=== PATIENT | female | born 1965 | race Caucasian/White ===

== ENCOUNTER → 2019-03-09 | Outpatient (CLI) | payer BC ==
[~2019-03-09] MED LIST: IOHEXOL 240 MG/ML 50ML VIAL. ONE; IOHEXOL 240 MG/ML 50ML VIAL. PO ONE; IOHEXOL 300 MG/ML 75 ML VIAL. IV ONE
--- NOTE | 2019-03-09 16:37 | RAD ---
CT of the abdomen with and without contrast, 03/09/2019: HISTORY: Upper abdominal pain Multidetector CT imaging was performed prior to and following an IV bolus injection of iodinated contrast material. Oral contrast material was also administered for GI tract opacification. The gallbladder is surgically absent. No hepatic mass or bile duct dilatation is seen. The pancreas is unremarkable. The spleen is of normal size. No renal or adrenal abnormality is detected. There is moderate aortic calcific plaquing without evidence of aneurysm. No retroperitoneal or mesenteric adenopathy is seen. The bowel loops are not dilated. There are surgical sutures related to the right colon. No free fluid or free air is evident in the abdomen or pelvis. There are mild scattered degenerative changes in the spine. There is disc calcification at L4-5. IMPRESSION: No acute abdominal abnormality is detected. PQRS Compliance Statement: One or more of the following individualized dose reduction techniques were utilized for this examination: 1. Automated exposure control 2. Adjustment of the mA and/or kV according to patient size 3. Use of iterative reconstruction technique Electronically signed by: Babatunde Pacheco MD (03/09/2019 4:33 PM) [facility]
== END | disposition home or self-care (01) ==
LOC: CT 13:29
PROVIDERS: ATTEND Family Medicine
DX: I70.0 Atherosclerosis of aorta (principal); M51.86 Other intervertebral disc disorders, lumbar region; M47.816 Spondylosis without myelopathy or radiculopathy, lumbar region
CPT/HCPCS: 74170; Q9967

== ENCOUNTER → 2020-03-07 | Outpatient (CLI) | payer BC ==
--- NOTE | 2020-03-07 12:13 | RAD ---
CT HEAD WO CONTRAST Date: 03/07/2020 10:30 AM Clinical Indication: Reason: SUDDEN ONSET POSTERIOR COTE, STRONG FAMILY HX OF BRAIN TUMOR / Spl. Instructions: FATHER, SISTER, AND NEPHEW PASSED FROM BRAN TUMOR / History: Comparison: CT head 08/18/2011. Technique: 5 mm axial tomographic images were obtained of the head without contrast. These were viewed on brain and bone windows. One or more of the following dose reduction techniques were utilized: Automated exposure control (AEC), Adjustment of mA and/or kV according to patient size, Use of iterative reconstruction technique such as ASiR, CT scan done according to ALARA and image gently/image wisely Findings: The brain parenchyma is normal in attenuation. No intra- or extra-axial mass or fluid collection. No acute hemorrhage. The ventricles are normal in size, shape, and morphology. The stark-white matter junction is normal. The subarachnoid cisterns are patent. The visualized paranasal sinuses are normal. The visualized portions of the orbits and globes are normal. The mastoid air cells are clear. The swimming pool attendant topogram shows no lytic lesion or fracture. Impression: No acute intracranial process. Electronically signed by: Robert Canseco MD (03/07/2020 12:10 PM) [id number]
== END ==
LOC: CT 10:07
PROVIDERS: ATTEND Family Medicine
DX: R51 Headache (principal); R11.0 Nausea
CPT/HCPCS: 70450

== ENCOUNTER 2020-03-19 10:21 | Emergency (ER) | payer BC ==
[~2020-03-19] VITALS: Ht 167.6 cm; Wt 54.0 kg
[2020-03-19] MEDS ORDERED: IV NORMAL SALINE 1,000ML 1,000 ML IV ONE (10:45)
[2020-03-19] MEDS ORDERED: IOHEXOL 300 MG/ML 75 ML VIAL. IV ONE (10:45)
[2020-03-19] MEDS ORDERED: ONDANSETRON PF 4 MG/2 ML VIAL. IVP ONE (10:45)
[2020-03-19] MEDS ORDERED: FAMOTIDINE 20 MG/2 ML VIAL IVP ONE (10:45)
[2020-03-19 10:55] VITALS: BP 116/66
[2020-03-19 10:55] LABS: BASO # 0.1 x10^3/uL (0.0-0.2); BASO % 1 % (0-3); EOS # 0.2 x10^3/uL (0.0-0.7); EOS % 3 % (0-3); HEMATOCRIT 41.2 % (36.0-47.0); HEMOGLOBIN 13.8 g/dL (12.0-15.5); LYMPH # 2.4 x10^3/uL (1.0-4.8); LYMPH % 36 % (24-48); MEAN CORPUSCULAR HEMOGLOBIN 32 pg (25-35); MEAN CORPUSCULAR HGB CONC 33 g/dL (31-37); MEAN CORPUSCULAR VOLUME 95 fL (79-100); MONO # 0.5 x10^3/uL (0.0-1.1); MONO % 7 % (0-9); NEUT # 3.5 x10^3uL (1.8-7.7); NEUT % 53 % (31-73); PLATELET COUNT 223 x10^3/uL (140-400); RED BLOOD COUNT 4.36 x10^6/uL (3.50-5.40); RED CELL DISTRIBUTION WIDTH 13.2 % (11.5-14.5); WHITE BLOOD COUNT 6.6 x10^3/uL (4.0-11.0)
[2020-03-19 11:01] LABS: CALCIUM 9.1 mg/dL (8.5-10.1); GFR 57.6
--- NOTE | 2020-03-19 11:04 | RAD ---
CT abdomen and pelvis with contrast HISTORY: Left lower quadrant pain Technique: After the administration of intravenous contrast, CT imaging was performed of the abdomen and pelvis. No oral contrast was given. Multiplanar images are reviewed. Exposure: One or more of the following individualized dose reduction techniques were utilized for this examination: 1. Automated exposure control 2. Adjustment of the mA and/or kV according to patient size 3. Use of iterative reconstruction technique. Comparison: March 09, 2019 Findings: There is some motion degradation. There is no significant abnormality of the visualized lung bases. There is no significant abnormality of the liver, spleen, pancreas, adrenal glands. Both kidneys enhance without hydronephrosis. There has been cholecystectomy. Accurate evaluation of bowel is limited without oral contrast. The bowel is not significantly dilated. There is no free fluid or free air. While not associated with significant adjacent inflammatory-type change, there is appearance of degree of mild long segment wall thickening of the descending and sigmoid colon and also possibly of the distal transverse colon. No abscess is identified. Degree of small bowel wall thickening in the left abdomen is also possible. Urinary bladder is distended. There is some scattered plaque of the abdominal aorta and right iliac artery. Small calcification in the left pelvis is believed to be a phlebolith rather than distal ureteral calculus. Impression: 1. Accurate evaluation for bowel wall thickening is limited without oral contrast, probable degree of mild long segmental wall thickening of the colon as described which may be seen with colitis and possible degree of small bowel wall thickening of the abdomen as may be seen with enteritis in the appropriate clinical setting. 2. Urinary bladder is distended. Electronically signed by: Robert Garcia MD (03/19/2020 11:01 AM) [id number]
[2020-03-19 11:07] LABS: ALBUMIN 3.5 g/dL (3.4-5.0); MAGNESIUM 1.9 mg/dL (1.8-2.4); TOTAL BILIRUBIN 0.3 mg/dL (0.2-1.0); TOTAL PROTEIN 6.9 g/dL (6.4-8.2)
--- NOTE | 2020-03-19 11:07 | PHYS DOC ---
Past History Past Medical History: Diverticulitis Additional Past Medical Histor: Chronic abdominal pain Past Surgical History: Colectomy, Other Additional Past Surgical Histo: Abdominal abscess Smoking: Cigarettes Alcohol Use: Rarely Drug Use: None General Adult EDM: Chief Complaint: ABDOMINAL PAIN HPI: HPI: 54-year-old female presents with left lower quadrant abdominal pain which is progressively gotten worse over the last several months. Patient reports several year history of chronic abdominal pain. Patient reports prior diverticulitis. Patient also reports history of intra-abdominal abscess. Patient reports presents today secondary to worsening of pain and report of painful bowel movement in which she noted some bright red blood. Denies dizziness or lightheadedness. Denies fever or chills. Denies known sick contact. Patient reports has yet to follow-up with GI. Reports her PCP had started her on empiric antibiotics 2 weeks ago. Patient denies taking any medication prior to arrival for pain. Review of Systems: Review of Systems: Constitutional: Denies fever or chills Eyes: Denies redness or eye pain HENT: Denies nasal congestion or sore throat Respiratory: Denies cough or shortness of breath Cardiovascular: Denies chest pain or palpitations GI: Reports abdominal pain and nausea; denies vomiting : Denies dysuria or hematuria Musculoskeletal: Denies back pain or joint pain Integument: Denies rash or skin lesions Neurologic: Denies headache, focal weakness or sensory changes Complete systems were reviewed and found to be within normal limits, except as documented in this note. Current Medications: Current Meds: Current Medications Medications (Trade) Dose Ordered Sig/[facility] Start Time Stop Time Status Last Admin Dose Admin Famotidine (Pepcid Vial) 20 mg 1X ONCE 03/19/20 10:45 03/19/20 10:47 DC 03/19/20 10:50 20 MG Fentanyl Citrate (Fentanyl 2ml Vial) 50 mcg 1X ONCE 03/19/20 10:45 03/19/20 10:47 DC 03/19/20 10:51 50 MCG Iohexol (Omnipaque 300 Mg/ml) 75 ml 1X ONCE 03/19/20 10:45 03/19/20 10:47 DC 03/19/20 10:43 75 ML Ondansetron HCl (Zofran) 4 mg 1X ONCE 03/19/20 10:45 03/19/20 10:47 DC 03/19/20 10:50 4 MG Sodium Chloride 1,000 ml @ 1,000 mls/hr 1X ONCE 03/19/20 10:45 03/19/20 11:44 Allergies: Allergies: Allergies Coded Allergies Type Severity Reaction Last Updated Verified codeine Allergy Unknown 03/19/20 Yes Physical Exam: PE: Constitutional: Well developed, well nourished, no acute distress, non-toxic appearance HENT: Normocephalic, atraumatic, Eyes: Conjunctiva normal, no discharge Neck: Normal range of motion, no tenderness, supple Lungs & Thorax: No respiratory distress, equal chest rise and fall Abdomen: Soft, LLQ tenderness Skin: Warm, dry, no erythema, no rash Back: No tenderness, no CVA tenderness Extremities: No tenderness, ROM intact, no edema Neurologic: Alert and oriented X 3, no focal deficits noted Psychologic: Affect normal, judgment normal Current Patient Data: Labs: Laboratory Tests Test 03/19/20 10:37 White Blood Count 6.6 x10^3/uL (4.0-11.0) Red Blood Count 4.36 x10^6/uL (3.50-5.40) Hemoglobin 13.8 g/dL (12.0-15.5) Hematocrit 41.2 % (36.0-47.0) Mean Corpuscular Volume 95 fL (79-100) Mean Corpuscular Hemoglobin 32 pg (25-35) Mean Corpuscular Hemoglobin Concent 33 g/dL (31-37) Red Cell Distribution Width 13.2 % (11.5-14.5) Platelet Count 223 x10^3/uL (140-400) Neutrophils (%) (Auto) 53 % (31-73) Lymphocytes (%) (Auto) 36 % (24-48) Monocytes (%) (Auto) 7 % (0-9) Eosinophils (%) (Auto) 3 % (0-3) Basophils (%) (Auto) 1 % (0-3) Neutrophils # (Auto) 3.5 x10^3uL (1.8-7.7) Lymphocytes # (Auto) 2.4 x10^3/uL (1.0-4.8) Monocytes # (Auto) 0.5 x10^3/uL (0.0-1.1) Eosinophils # (Auto) 0.2 x10^3/uL (0.0-0.7) Basophils # (Auto) 0.1 x10^3/uL (0.0-0.2) Sodium Level 141 mmol/L (136-145) Potassium Level 4.0 mmol/L (3.5-5.1) Chloride Level 107 mmol/L (98-107) Carbon Dioxide Level 28 mmol/L (21-32) Anion Gap 6 (6-14) Blood Urea Nitrogen 5 mg/dL (7-20) L Creatinine 1.0 mg/dL (0.6-1.0) Estimated GFR (Cockcroft-Gault) 57.6 BUN/Creatinine Ratio 5 (6-20) L Glucose Level 82 mg/dL (70-99) Calcium Level 9.1 mg/dL (8.5-10.1) Magnesium Level Pending Total Bilirubin Pending Aspartate Amino Transferase (AST) Pending Alanine Aminotransferase (ALT) Pending Alkaline Phosphatase Pending Total Protein Pending Albumin Pending Albumin/Globulin Ratio Pending Lipase Pending Vital Signs: Vital Signs Date Time Temp Pulse Resp B/P (MAP) Pulse Ox O2 Delivery O2 Flow Rate FiO2 03/19/20 10:55 98.2 95 16 116/66 (83) 99 Room Air EKG: EKG: [] Radiology/Procedures: Radiology/Procedures: PROCEDURE: CT ABD PELV W/ IV CONTRST ONLY CT abdomen and pelvis with contrast HISTORY: Left lower quadrant pain Technique: After the administration of intravenous contrast, CT imaging was performed of the abdomen and pelvis. No oral contrast was given. Multiplanar images are reviewed. Exposure: One or more of the following individualized dose reduction techniques were utilized for this examination: 1. Automated exposure control 2. Adjustment of the mA and/or kV according to patient size 3. Use of iterative reconstruction technique. Comparison: March 09, 2019 Findings: There is some motion degradation. There is no significant abnormality of the visualized lung bases. There is no significant abnormality of the liver, spleen, pancreas, adrenal glands. Both kidneys enhance without hydronephrosis. There has been cholecystectomy. Accurate evaluation of bowel is limited without oral contrast. The bowel is not significantly dilated. There is no free fluid or free air. While not associated with significant adjacent inflammatory-type change, there is appearance of degree of mild long segment wall thickening of the descending and sigmoid colon and also possibly of the distal transverse colon. No abscess is identified. Degree of small bowel wall thickening in the left abdomen is also possible. Urinary bladder is distended. There is some scattered plaque of the abdominal aorta and right iliac artery. Small calcification in the left pelvis is believed to be a phlebolith rather than distal ureteral calculus. Impression: 1. Accurate evaluation for bowel wall thickening is limited without oral contrast, probable degree of mild long segmental wall thickening of the colon as described which may be seen with colitis and possible degree of small bowel wall thickening of the abdomen as may be seen with enteritis in the appropriate clinical setting. 2. Urinary bladder is distended. Electronically signed Course & Med Decision Making: Course & Med Decision Making Pertinent Labs and Imaging studies reviewed. (See chart for details) Patient presents with acute on chronic left lower quadrant abdominal pain. Reports prior history of diverticulitis. Reports episode of blood stool. Pain/nausea addressed. IVF hydration given. Labs obtained and posted to chart. WBC and lactic acid within normal limits. H/H stable. CT abd/pelvis with findings of colitis. NO abscess noted. Empiric antibiotics given. Patient stable for discharge with outpatient follow-up with PCP/GI. GI referral provided. Discussed findings and plan with patient, who acknowledges understanding and agreement. Dragm[employer] Disclaimer: [employer] Disclaimer: This electronic medical record was generated, in whole or in part, using a voice recognition dictation system. Departure Departure: Impression: Primary Impression: Colitis Disposition: 01 HOME/RESIDENCE PRIOR TO ADM Condition: STABLE Referrals: DELBERT MOULTON MD (PCP) TORITO DA SILVA MD Patient Instructions: Colitis Scripts Ciprofloxacin Hcl (CIPRO) 500 Mg Tablet 1 TAB PO BID for Colitis for 7 Days, #14 TAB 0 Refills Prov: LUIS MIGUEL LEY DO 03/19/20 Metronidazole (FLAGYL) 500 Mg Tablet 1 TAB PO TID for Colitis for 7 Days, #21 TAB Prov: LUIS MIGUEL LEY DO 03/19/20 Ondansetron (ONDANSETRON ODT) 4 Mg Tab.rapdis 1 TAB PO PRN Q6-8HRS PRN for NAUSEA, #16 TAB Prov: LUIS MIGUEL LEY DO 03/19/20 Hyoscyamine Sulfate (LEVSIN-SL) 0.125 Mg Tab.subl 0.125 MG SL Q4-6HRS PRN for PAIN, #20 TAB Prov: LUIS MIGUEL LEY DO 03/19/20 Justification of Admission: Justification of Admission: Justification of Admission Dx: N/A LUIS MIGUEL LEY DO Mar 19, 2020 11:07
[2020-03-19 12:38] LABS: BILIRUBIN,URINE NEG (NEG); CLARITY,URINE CLEAR; COLOR,URINE YELLOW; GLUCOSE,URINE NEG (NEG)
[2020-03-19 12:39] LABS: BACTERIA,URINE 0 /HPF (0-FEW); NITRITE,URINE NEG (NEG); RBC,URINE 0 /HPF (0-2); SQUAMOUS EPITHELIAL CELL,UR FEW /LPF; UROBILINOGEN,URINE 0.2 mg/dL (0.2 mg/dL); WBC,URINE 0 /HPF (0-4)
[2020-03-19] MEDS ORDERED: ONDA4TAB12 PO (12:53)
[2020-03-19] MEDS ORDERED: HYOS0.1265 SL (12:53)
[2020-03-19] MEDS ORDERED: METR500T PO (12:53)
[2020-03-19] MEDS ORDERED: CIPR500T94 PO (12:53)
[2020-03-19] MEDS ORDERED: metroNIDAZOLE 500 MG TABLET PO ONE (13:00)
[2020-03-19] MEDS ORDERED: CIPROFLOXACIN HCL 500 MG TABLET PO ONE (13:00)
== END 2020-03-19 13:20 | disposition home or self-care (01) ==
LOC: ER 10:21
DX: K52.9 Noninfective gastroenteritis and colitis, unspecified (principal); G89.29 Other chronic pain; F17.210 Nicotine dependence, cigarettes, uncomplicated; Z90.49 Acquired absence of other specified parts of digestive tract; Z88.5 Allergy status to narcotic agent
CPT/HCPCS: 36415; 74177; 80053; 81001; 83605; 83690; 83735; 85025; 85610; 85730; 96361; 96374; 96375; 96376; 99285; J2405; J3010; J3490; J7030; Q9967

== ENCOUNTER → 2020-04-03 | Outpatient (CLI) | payer BC ==
[2020-03-19 10:55] VITALS: BP 116/66
[~2020-04-03] MED LIST changes: +CIPR500T94 PO; +HYOS0.1265 SL; -IOHEXOL 240 MG/ML 50ML VIAL. ONE; -IOHEXOL 240 MG/ML 50ML VIAL. PO ONE; -IOHEXOL 300 MG/ML 75 ML VIAL. IV ONE; +METR500T PO; +ONDA4TAB12 PO
--- NOTE | 2020-04-03 08:22 | RAD ---
EXAM: Pelvic sonogram. HISTORY: Pain. TECHNIQUE: Sonographic imaging of the pelvis was performed. COMPARISON: CT dated 02/17/2020. FINDINGS: The uterus is surgically absent. The ovaries are not seen. There is no pelvic free fluid. No adnexal mass or cyst is seen. IMPRESSION: 1. Surgically absent uterus. 2. Obscured or surgically absent ovaries. 3. No adnexal mass or cyst. Electronically signed by: Shanon Gautam MD (04/03/2020 8:19 AM) [id number]
== END ==
LOC: US 07:26
PROVIDERS: ATTEND Nurse Practitioner Women's Health
DX: R10.2 Pelvic and perineal pain (principal); Z90.710 Acquired absence of both cervix and uterus
CPT/HCPCS: 76856

== ENCOUNTER → 2021-11-24 | Outpatient (CLI) | payer BC ==
[~2021-11-24] MED LIST changes: +IOHEXOL 350 MG/ML 100 ML VIAL. IV ONE
--- NOTE | 2021-11-25 11:10 | RAD ---
EXAMINATION: CTA abdomen with and without IV contrast. INDICATION:56 years, Female, abdominal pain, calcification of celiac arteries, nausea. TECHNIQUE: Axial CTA images of the abdomen was obtained. Coronal and sagittal reformatted performed. COMPARISON: 03/19/2020. Exposure: One or more of the following individualized dose reduction techniques were utilized for thi s examination: 1. Automated exposure control 2. Adjustment of the mA and/or kV according to patient size 3. Use of iterative reconstruction technique. FINDINGS: LOWER CHEST: Dependent subsegmental atelectasis in bibasilar lungs. ABDOMEN: Normal caliber abdominal aorta, demonstrates mild atherosclerotic calcifications without significant narrowing or dilation. Redemonstrated occlusion of the celiac trunk with reconstitution of the common hepatic, splenic and left gastric arteries via collaterals from inferior mesenteric artery. 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 JESSICA is widely distended wit h multiple collaterals in the left abdomen. Patent but diminutive appearance of the renal arteries. B ilateral common, visualized internal and external iliac arteries are patent. Unremarkable liver, spleen, pancreas, and biliary ducts. Cholecystectomy. Nodular thickening of the l eft adrenal gland without discrete nodule. Right adrenal gland is unremarkable. No hydronephrosis or nephrolithiasis in either kidney. No bowel dilation. Postsurgical changes in the right colon. No lymp hadenopathy in the abdomen by size criteria. No pneumoperitoneum or ascites. MUSCULOSKELETAL STRUCTURES: No acute osseous process or suspicious lesion. IMPRESSION: 1. 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 2. Patent but diminutive appearance of renal arteries. Electronically signed by: Priya Smith MD (11/25/2021 11:08 AM) [facility]
== END ==
LOC: CT 15:34
PROVIDERS: ATTEND Family Medicine
DX: I77.4 Celiac artery compression syndrome (principal); R10.9 Unspecified abdominal pain; R11.0 Nausea; Z90.49 Acquired absence of other specified parts of digestive tract
CPT/HCPCS: 74175; Q9967